=== PATIENT | male | born 1955 | race Caucasian/White ===

== ENCOUNTER 2017-10-08 16:38 | Emergency (ER) | payer MEDICARE ==
[~2017-10-08 16:38] MED LIST: Sodium Chloride Irrig Solution 250 ML BOT ONE
[2017-10-08] MEDS ORDERED: Bupivacaine PF 0.5% 30 ML VIAL ONE (16:51)
[2017-10-08] MEDS ORDERED: Adacel (T-DAP) 0.5 ML VIAL ONE (16:51)
--- NOTE | 2017-10-08 17:10 | RAD ---
THREE VIEWS LEFT HAND: 10/08/17 INDICATION: Left finger injury. FINDINGS: There is traumatic amputation of the distal tuft of the distal phalanx of the left long finger with o verlying soft tissue amputation. 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 There is periart icular erosive changes involving the ulnar styloid process and portions of the wrist carpus that may reflect a component of inflammatory arthropathy. IMPRESSION: Soft tissue and osseous amputation of the distal tuft of the left long finger. POS: [facility]
[2017-10-08] MEDS ORDERED: Bacitracin Zinc 1 Packet ONE (17:36)
== END 2017-10-08 18:01 | disposition home or self-care (01) ==
LOC: MADERS 16:38
DX: S68.113A Complete traumatic metacarpophalangeal amputation of left middle finger, initial encounter (principal); W26.9XXA Contact with unspecified sharp object(s), initial encounter
CPT/HCPCS: 11010; 90471; 90715; S0020